=== PATIENT | male | born 1970 | race Caucasian/White ===

== ENCOUNTER 2018-05-02 20:59 | Emergency (ER) | payer BC ==
[~2018-05-02] VITALS: Ht 175.3 cm; Wt 88.0 kg
[2018-05-02] MEDS: HYDROcodone/acetaminophen 10/325mg tab PO ONE (22:03)
[2018-05-02] MEDS ORDERED: HYDR-3965 PO (22:13)
[2018-05-02 22:31] VITALS: BP 133/74
== END 2018-05-02 22:33 | disposition home or self-care (01) ==
LOC: ER 21:00
DX: S52.572A Other intraarticular fracture of lower end of left radius, initial encounter for closed fracture (principal); Z88.6 Allergy status to analgesic agent; W18.39XA Other fall on same level, initial encounter; Y93.89 Activity, other specified; Y92.331 Roller skating rink as the place of occurrence of the external cause; Y99.8 Other external cause status
CPT/HCPCS: 29125; 73110; 99283

== ENCOUNTER 2018-05-07 09:05 | Outpatient (CLI) | payer BC ==
[2018-05-07 09:03] VITALS: BP 134/79
[~2018-05-07 09:05] MED LIST: HYDR-3965 PO
== END 2018-05-07 10:00 | disposition home or self-care (01) ==
LOC: ORTHO 09:05
PROVIDERS: ATTEND Nurse Practitioner Family
DX: S52.612A Displaced fracture of left ulna styloid process, initial encounter for closed fracture (principal); S52.572A Other intraarticular fracture of lower end of left radius, initial encounter for closed fracture; Z88.5 Allergy status to narcotic agent; W18.39XA Other fall on same level, initial encounter; Y93.89 Activity, other specified; Y92.331 Roller skating rink as the place of occurrence of the external cause; Y99.8 Other external cause status
CPT/HCPCS: 73110; 99213

== ENCOUNTER 2018-05-22 09:53 | Outpatient (CLI) | payer BC ==
[2018-05-22 09:52] VITALS: BP 128/78
== END 2018-05-22 10:32 | disposition home or self-care (01) ==
LOC: ORTHO 09:53
PROVIDERS: ATTEND Nurse Practitioner Family
DX: S52.572D Other intraarticular fracture of lower end of left radius, subsequent encounter for closed fracture with routine healing (principal); S52.612A Displaced fracture of left ulna styloid process, initial encounter for closed fracture; Z88.5 Allergy status to narcotic agent; W19.XXXD Unspecified fall, subsequent encounter
CPT/HCPCS: 73110; 99213; A4590

== ENCOUNTER 2018-06-06 09:07 | Outpatient (CLI) | payer BC, OTHER ==
[2018-06-06 09:04] VITALS: BP 124/72
== END 2018-06-06 09:46 | disposition home or self-care (01) ==
LOC: ORTHO 09:07
PROVIDERS: ATTEND Nurse Practitioner Family
DX: S52.572D Other intraarticular fracture of lower end of left radius, subsequent encounter for closed fracture with routine healing (principal); S52.612G Displaced fracture of left ulna styloid process, subsequent encounter for closed fracture with delayed healing; Z88.5 Allergy status to narcotic agent; W19.XXXD Unspecified fall, subsequent encounter
CPT/HCPCS: 73110; 99213

== ENCOUNTER 2018-06-20 09:02 | Outpatient (CLI) | payer BC ==
[2018-06-20 09:00] VITALS: BP 126/79
== END 2018-06-20 09:33 | disposition home or self-care (01) ==
LOC: ORTHO 09:02
PROVIDERS: ATTEND Nurse Practitioner Family
DX: S52.572D Other intraarticular fracture of lower end of left radius, subsequent encounter for closed fracture with routine healing (principal); S52.612D Displaced fracture of left ulna styloid process, subsequent encounter for closed fracture with routine healing; Z88.5 Allergy status to narcotic agent; Y93.51 Activity, roller skating (inline) and skateboarding
CPT/HCPCS: 73110; 99213

== ENCOUNTER 2018-07-04 09:22 | Outpatient (CLI) | payer BC | END 2018-07-04 09:44 | disposition home or self-care (01) | LOC: ORTHO 09:22 | PROVIDERS: ATTEND Nurse Practitioner Family | DX: S52.572D Other intraarticular fracture of lower end of left radius, subsequent encounter for closed fracture with routine healing (principal); S52.612D Displaced fracture of left ulna styloid process, subsequent encounter for closed fracture with routine healing; Z88.5 Allergy status to narcotic agent; W19.XXXD Unspecified fall, subsequent encounter; Y93.51 Activity, roller skating (inline) and skateboarding | CPT/HCPCS: 73110; G0463; 99213 ==

== ENCOUNTER 2018-08-01 11:03 | Outpatient (CLI) | payer OTHER ==
[2018-08-01 11:06] VITALS: BP 123/75
== END 2018-08-01 11:30 | disposition home or self-care (01) ==
LOC: ORTHO 11:03
PROVIDERS: ATTEND Nurse Practitioner Family
DX: S52.572D Other intraarticular fracture of lower end of left radius, subsequent encounter for closed fracture with routine healing (principal); S52.612D Displaced fracture of left ulna styloid process, subsequent encounter for closed fracture with routine healing; X58.XXXD Exposure to other specified factors, subsequent encounter
CPT/HCPCS: 73110; 99213

== ENCOUNTER 2018-08-08 09:25 | Outpatient (CLI) | payer OTHER ==
[2018-08-08 09:24] VITALS: BP 118/83
== END 2018-08-08 09:48 | disposition home or self-care (01) ==
LOC: ORTHO 09:25
PROVIDERS: ATTEND Nurse Practitioner Family
DX: S52.502D Unspecified fracture of the lower end of left radius, subsequent encounter for closed fracture with routine healing (principal); X58.XXXD Exposure to other specified factors, subsequent encounter
CPT/HCPCS: 73110; 99213

== ENCOUNTER 2018-08-29 09:19 | Outpatient (CLI) | payer OTHER ==
[2018-08-29 09:08] VITALS: BP 107/79
== END 2018-08-29 09:29 | disposition home or self-care (01) ==
LOC: ORTHO 09:19
PROVIDERS: ATTEND Nurse Practitioner Family
DX: S52.592D Other fractures of lower end of left radius, subsequent encounter for closed fracture with routine healing (principal); S52.612D Displaced fracture of left ulna styloid process, subsequent encounter for closed fracture with routine healing; X58.XXXD Exposure to other specified factors, subsequent encounter
CPT/HCPCS: 73110; 99213

== ENCOUNTER 2018-10-03 09:24 | Outpatient (CLI) | payer OTHER ==
[2018-10-03 09:56] VITALS: BP 125/84
== END 2018-10-03 09:43 | disposition home or self-care (01) ==
LOC: ORTHO 09:24
PROVIDERS: ATTEND Orthopaedic Surgery
DX: S52.592D Other fractures of lower end of left radius, subsequent encounter for closed fracture with routine healing (principal); X58.XXXD Exposure to other specified factors, subsequent encounter
CPT/HCPCS: 73110; 99213

== ENCOUNTER 2020-07-17 11:45 | Emergency (ER) | payer BC, OTHER ==
[~2020-07-17] VITALS: Ht 175.3 cm; Wt 75.0 kg
[2020-07-17 11:47] VITALS: BP 138/76
[2020-07-17 12:33] LABS: CLARITY,URINE CLEAR (Clear); COLOR,URINE YELLOW (Yellow); GLUCOSE, URINE NEGATIVE (Neg); KETONES,URINE NEGATIVE (Neg); LEUKOCYTE ESTERASE ,URINE NEGATIVE (Neg); NITRITES, URINE NEGATIVE (Neg); OCCULT BLOOD,URINE NEGATIVE (Neg); PROTEIN,URINE NEGATIVE (Neg); UROBILINOGEN,URINE 0.2 E.U/dL (0.2-1.0)
[2020-07-17 12:47] LABS: UA COLLECTION TYPE CLN CATCH MIDSTREAM
[2020-07-17] MEDS ORDERED: FLO0.4C PO (13:09)
== END 2020-07-17 13:14 | disposition home or self-care (01) ==
LOC: ER 11:46
DX: R35.0 Frequency of micturition (principal); Z72.89 Other problems related to lifestyle; Z88.5 Allergy status to narcotic agent; Z79.899 Other long term (current) drug therapy
CPT/HCPCS: 81003; 82948; 99283

== ENCOUNTER 2020-08-12 14:09 | Outpatient (CLI) | payer BC ==
[~2020-08-12 14:09] MED LIST changes: +FLO0.4C PO; -HYDR-3965 PO
[2020-08-12 14:45] LABS: BASOPHILS % (AUTO) 1.1 % (0-1); EOSINOPHILS % (AUTO) 0.7 % (0-6); HEMATOCRIT 42.6 % (42.0-52.0); HEMOGLOBIN 14.3 g/dl (14.0-17.9); LYMPHOCYTES # (AUTO) 1.4 X10'3 (1.1-4.8); MEAN CORPUSCULAR HEMOGLOBIN 31.7 PG (27.0-31.0); MEAN CORPUSCULAR HGB CONC 33.4 g/dL (33.0-36.5); MEAN CORPUSCULAR VOLUME 94.7 FL (78-98); MEAN PLATELET VOLUME 7.8 FL (7.4-10.4); MONOCYTES # (AUTO) 0.5 X10'3 (0-0.9); MONOCYTES % (AUTO) 10.9 % (2-12); NEUTROPHILS # (AUTO) 2.3 X10'3 (1.8-7.7); NEUTROPHILS % (AUTO) 54.3 % (42-75); PLATELET COUNT 213 X10'3 (140-440); RED CELL DISTRIBUTION WIDTH 13.8 % (11.5-14.5); WHITE BLOOD COUNT 4.2 X10'3 (4.5-11.0)
[2020-08-12 15:02] LABS: ALANINE AMINOTRANSFERASE 25 U/L (12-78); ALBUMIN/GLOBULIN RATIO 1.3 (1.1-1.5); ALKALINE PHOSPHATASE 85 IU/L (46-116); ANION GAP 5 (8-16); ASPARTATE AMINO TRANSFERASE 17 U/L (10-37); BILIRUBIN,TOTAL 0.6 MG/DL (0.1-1.0); BLOOD UREA NITROGEN 15 MG/DL (7-18); BUN/CREATININE RATIO 12.3 (5.4-32.0); CALCIUM 8.9 MG/DL (8.5-10.1); CHLORIDE 105 MMOL/L (99-107); CHOL/HDL RATIO 2.9 (0.00-4.99); CHOLESTEROL 137 MG/DL (0-200); CREATININE 1.22 MG/DL (0.60-1.10); GLUCOSE 84 MG/DL (70-104); HDL CHOLESTEROL 48 MG/DL (35-60); LDL CHOLESTEROL 82 MG/DL (50-100); POTASSIUM 4.5 MMOL/L (3.5-5.1); SODIUM 141 MMOL/L (135-145); TOTAL CARBON DIOXIDE 31.1 MMOL/L (24-32); TOTAL PROTEIN 7.1 G/DL (6.4-8.2); TRIGLYCERIDES 54 MG/DL (20-135); eGFR 63 ML/MIN
[2020-08-12 15:05] LABS: HEMOGLOBIN A1C 6.2 % (4.5-6.2)
[2020-08-12 15:21] LABS: CLARITY,URINE CLEAR (Clear); COLOR,URINE YELLOW (Yellow); GLUCOSE, URINE NEGATIVE (Neg); KETONES,URINE NEGATIVE (Neg); LEUKOCYTE ESTERASE ,URINE NEGATIVE (Neg); NITRITES, URINE NEGATIVE (Neg); OCCULT BLOOD,URINE NEGATIVE (Neg); PROTEIN,URINE NEGATIVE (Neg)
[2020-08-12 15:26] LABS: UA COLLECTION TYPE CLN CATCH MIDSTREAM
[2020-08-14 12:34] LABS: % FREE PSA 33.8 % (.); PSA, FREE 0.27 ng/mL
== END 2020-08-12 23:59 | disposition home or self-care (01) ==
LOC: LAB 14:09
PROVIDERS: ATTEND Nurse Practitioner Family
DX: Z00.01 Encounter for general adult medical examination with abnormal findings (principal); Z13.220 Encounter for screening for lipoid disorders; Z13.0 Encounter for screening for diseases of the blood and blood-forming organs and certain disorders involving the immune mechanism; N40.0 Benign prostatic hyperplasia without lower urinary tract symptoms; R73.09 Other abnormal glucose
CPT/HCPCS: 36415; 80053; 80061; 81003; 83036; 84153; 84154; 85025

== ENCOUNTER 2020-08-21 19:31 | Emergency (ER) | payer BC ==
[~2020-08-21] VITALS: Ht 175.3 cm; Wt 72.7 kg
[2020-08-21] MEDS ORDERED: TETanus/Pertussis (Acell)/Diphther VAC/PF (Tdap-Adult) 0.5ml syringe IMVAC ONE (21:25)
[2020-08-21] MEDS ORDERED: LIDOcaine 1% W/epiNEPHrine 1:200,000 10ml vial IJ ONE (21:40)
[2020-08-21 23:23] VITALS: BP 124/87
== END 2020-08-21 23:17 | disposition home or self-care (01) ==
LOC: ER 19:31
DX: S01.21XA Laceration without foreign body of nose, initial encounter (principal); J34.89 Other specified disorders of nose and nasal sinuses; Z20.3 Contact with and (suspected) exposure to rabies; Z72.89 Other problems related to lifestyle; Z88.5 Allergy status to narcotic agent; X58.XXXA Exposure to other specified factors, initial encounter; Y93.89 Activity, other specified; Y92.89 Other specified places as the place of occurrence of the external cause; Y99.8 Other external cause status
CPT/HCPCS: 12013; 90471; 90715; 99283

== ENCOUNTER 2022-03-25 12:05 | Emergency (ER) | payer BC ==
[~2022-03-25] VITALS: Ht 175.3 cm; Wt 79.5 kg
[2022-03-25 12:19] VITALS: BP 114/82
== END 2022-03-25 15:26 | disposition home or self-care (01) ==
LOC: ER 12:06
DX: S62.625A Displaced fracture of middle phalanx of left ring finger, initial encounter for closed fracture (principal); Z87.81 Personal history of (healed) traumatic fracture; Z88.5 Allergy status to narcotic agent; W21.05XA Struck by basketball, initial encounter; Y93.89 Activity, other specified; Y92.89 Other specified places as the place of occurrence of the external cause; Y99.8 Other external cause status
CPT/HCPCS: 29130; 73130; 99283

== ENCOUNTER 2022-05-12 09:01 | Outpatient (CLI) | payer BC | END 2022-05-12 23:59 | disposition home or self-care (01) | LOC: RAD 09:01 | PROVIDERS: ATTEND Physician Assistant | DX: S46.811A Strain of other muscles, fascia and tendons at shoulder and upper arm level, right arm, initial encounter (principal); M19.011 Primary osteoarthritis, right shoulder; M25.711 Osteophyte, right shoulder; M77.8 Other enthesopathies, not elsewhere classified; M75.21 Bicipital tendinitis, right shoulder; X58.XXXA Exposure to other specified factors, initial encounter; Y93.89 Activity, other specified; Y92.89 Other specified places as the place of occurrence of the external cause; Y99.8 Other external cause status | CPT/HCPCS: 73221 ==

== ENCOUNTER 2022-09-02 12:41 | Outpatient (CLI) | payer BC | END 2022-09-02 23:59 | disposition home or self-care (01) | LOC: RAD 12:41 | PROVIDERS: ATTEND Nurse Practitioner | DX: M54.50 Low back pain, unspecified (principal); M48.061 Spinal stenosis, lumbar region without neurogenic claudication; M48.02 Spinal stenosis, cervical region; Z91.81 History of falling | CPT/HCPCS: 72141; 72146; 72148 ==

== ENCOUNTER 2022-09-06 07:51 | Emergency (ER) | payer BC ==
[~2022-09-06] VITALS: Ht 175.3 cm; Wt 79.5 kg
[2022-09-06 08:01] VITALS: BP 130/95
== END 2022-09-06 08:57 | disposition home or self-care (01) ==
LOC: ER 07:51
DX: M25.512 Pain in left shoulder (principal); Z72.89 Other problems related to lifestyle; Z88.5 Allergy status to narcotic agent
CPT/HCPCS: 73000; 73030; 73221; 99284

== ENCOUNTER 2022-11-07 11:12 | Outpatient (CLI) | payer BC ==
[2022-11-08 13:36] LABS: % FREE PSA 22.1 % (.); PSA, FREE 0.42 ng/mL
== END 2022-11-07 23:59 | disposition home or self-care (01) ==
LOC: LAB 11:12
PROVIDERS: ATTEND Urology
DX: N40.1 Benign prostatic hyperplasia with lower urinary tract symptoms (principal)
CPT/HCPCS: 36415; 84153; 84154

== ENCOUNTER → 2023-02-24 | Outpatient (CLI) | payer BC, OTHER | END | disposition home or self-care (01) | LOC: RAD 14:54 | PROVIDERS: ATTEND Internal Medicine Infectious Disease | DX: Z11.1 Encounter for screening for respiratory tuberculosis (principal) | CPT/HCPCS: 71046 ==

== ENCOUNTER 2023-03-10 14:52 | Outpatient (CLI) | payer BC ==
[2023-03-10] MEDS ORDERED: SAW450CA7 PO (15:35)
[2023-03-10 16:38] LABS: BASOPHILS % (AUTO) 0.6 % (0-1); EOSINOPHILS % (AUTO) 0.4 % (0-6); LYMPHOCYTES # (AUTO) 1.4 X10'3 (1.1-4.8); LYMPHOCYTES % (AUTO) 31.2 % (21-51); MEAN CORPUSCULAR HEMOGLOBIN 31.6 PG (27.0-31.0); MEAN CORPUSCULAR HGB CONC 33.3 g/dL (33.0-36.5); MEAN CORPUSCULAR VOLUME 94.9 FL (78-98); MEAN PLATELET VOLUME 7.6 FL (7.4-10.4); MONOCYTES # (AUTO) 0.5 X10'3 (0-0.9); MONOCYTES % (AUTO) 9.9 % (2-12); NEUTROPHILS # (AUTO) 2.7 X10'3 (1.8-7.7); NEUTROPHILS % (AUTO) 57.9 % (42-75); PRE OP HEMATOCRIT 45.9 % (42.0-52.0); PRE OP HEMOGLOBIN 15.3 g/dL (14.0-17.9); PRE OP PLATELET COUNT 237 X10'3 (140-440); PRE OP WHITE BLOOD COUNT 4.6 10'3 (4.8-10.8); RED BLOOD COUNT 4.83 X10'6 (4.70-6.10); RED CELL DISTRIBUTION WIDTH 14.3 % (11.5-14.5)
[2023-03-10 16:59] LABS: ALBUMIN 4.2 G/DL (3.4-5.0); ALBUMIN/GLOBULIN RATIO 1.2 (1.1-1.5); ALKALINE PHOSPHATASE 85 IU/L (46-116); BLOOD UREA NITROGEN 14 MG/DL (7-18); BUN/CREATININE RATIO 12.8 (10.0-20.0); CALCIUM 9.3 MG/DL (8.5-10.1); CHLORIDE 104 MMOL/L (99-107); CREATININE 1.09 MG/DL (0.60-1.10); PRE OP ALT 40 U/L (30-65); PRE OP ANION GAP 3 (8-16); PRE OP AST 23 U/L (10-37); PRE OP BILIRUB, TOTAL 0.6 MG/DL (0.0-1.0); PRE OP GLUCOSE 81 MG/DL (70-104); PRE OP POTASSIUM 4.3 MMOL/L (3.4-5.1); PRE OP SODIUM 139 MMOL/L (135-145); TOTAL CARBON DIOXIDE 31.7 MMOL/L (24-32); TOTAL PROTEIN 7.6 G/DL (6.4-8.2); eGFR 71 ML/MIN
== END 2023-03-10 23:59 | disposition home or self-care (01) ==
LOC: LAB 14:52 → EDSTATUS 03-17 11:45
PROVIDERS: ATTEND Orthopaedic Surgery
DX: Z01.818 Encounter for other preprocedural examination (principal); M75.51 Bursitis of right shoulder; M75.41 Impingement syndrome of right shoulder; M75.111 Incomplete rotator cuff tear or rupture of right shoulder, not specified as traumatic; M25.511 Pain in right shoulder; M19.011 Primary osteoarthritis, right shoulder; Z88.6 Allergy status to analgesic agent
CPT/HCPCS: 36415; 80053; 85025; 93005

== ENCOUNTER 2023-03-10 15:02 | Outpatient (CLI) | payer BC ==
[2023-03-10] MEDS ORDERED: SAW450CA7 PO (15:35)
[2023-03-13 12:15] LABS: % FREE PSA 15.7 % (.); PROSTATE SPECIFIC AG, SERUM 2.3 ng/mL (0.0-4.0); PSA, FREE 0.36 ng/mL
== END 2023-03-10 23:59 | disposition home or self-care (01) ==
LOC: LAB 15:02
PROVIDERS: ATTEND Urology
DX: N42.9 Disorder of prostate, unspecified (principal)
CPT/HCPCS: 36415; 84153; 84154

== ENCOUNTER 2023-04-03 06:41 | Day surgery (SDC) | payer BC ==
[2023-04-03] VITALS (9 sets, daily range): BP systolic 113–129; BP diastolic 77–88; PULSE 55–64; RESP 10–16; TEMP 98.4; O2SAT 94–98
[~2023-04-03] VITALS: Ht 175.3 cm; Wt 82.6 kg
[~2023-04-03 06:41] MED LIST changes: -FLO0.4C PO; +SAW450CA7 PO
[2023-04-03] MEDS ORDERED: epiNEPHrine 1 mg/ml 30ml MDV ONE (08:43)
[2023-04-03] MEDS ORDERED: LIDOcaine 1% w/EPI 1:100,000 inj. MDV 50 ML VIAL ONE (08:43)
[2023-04-03] MEDS ORDERED: ROPIVAcaine 0.5% (5mg/ml) 30ml vial ONE ×2 (08:43→08:50)
[2023-04-03] MEDS ORDERED: triamcinolone acetonide 40mg/ml inj ONE (08:43)
[2023-04-03] MEDS ORDERED: cloNIDine hcl/PF 100mcg/ml inj ONE (08:45)
[2023-04-03] MEDS ORDERED: midazolam 1 mg/ML 2ml injection ONE (08:48)
[2023-04-03] MEDS ORDERED: fentaNYL/PF 50MCG/1 ML 2ML syringe ONE (08:48)
[2023-04-03] MEDS ORDERED: propofol inj 20 ML IV ONE (08:48)
[2023-04-03] MEDS ORDERED: dexamethasone sod phosphate 4mg/ml inj. ONE (08:54)
[2023-04-03] MEDS ORDERED: sevoflurane 250ml liquid IH ONE (08:56)
[2023-04-03] MEDS ORDERED: morphine 2 MG/ML inj. syringe IV PRN (10:20)
[2023-04-03] MEDS ORDERED: proCHLORperazine 10 MG/2 ml inj IV PRN (10:20)
[2023-04-03] MEDS ORDERED: meperidine/PF 25mg/ml syringe IV PRN ×3 (10:20)
[2023-04-03] MEDS ORDERED: ringers solution, lacted 1,000 ML IV SCH (10:20)
[2023-04-03] MEDS ORDERED: ondansetron/PF 4mg/2ml inj IV PRN (10:20)
[2023-04-03] MEDS ORDERED: morphine 4 MG/ML inj SYRINge IV PRN (10:20)
--- NOTE | 2023-04-03 11:19 | NUR ---
Received from OR via [facility], accompanied by Anesthesiologist DR. SCHMIDT and report given by Anesthesiolgist. PATIENT RESPONDS TO VERBAL STIMULI, DENIES PAIN, V/S WNL, SCD ON , PIV 20G L.HAND, DRESSING TO RIGHT SIDE CDI, ABDUCTOR SLING IN PLACE. 10L MASK 98%. LR INFUSING PER ORDER.
--- NOTE | 2023-04-03 12:49 | NUR ---
ALL DISCHARGE CRITERIA HAS BEEN MET. VSS, PAIN AT TOLERABLE LEVEL. ABLE TO SAFELY AMBULATE AND TRANSFER SELF. IV TAKEN OUT WITHOUT ANY COMPLICATIONS. ALL DISCHARGE INSTRUCTIONS COVERED WITH PATIENT AND , KANAYCE, AND ALL QUESTIONS ANSWERED. PATIENT TAKEN OUT VIA WHEELCHAIR TO PERSONAL VEHICLE WHERE FAMILY/FRIEND DROVE PATIENT HOME.
[2023-04-04] MEDS ORDERED: ringers solution, lacted 1,000 ML IV SCH (05:00)
[2023-04-04] MEDS ORDERED: famotidine 20mg tablet PO ONE (05:30)
== END 2023-04-03 12:49 | disposition home or self-care (01) ==
LOC: PAS 06:41
PROVIDERS: ATTEND Orthopaedic Surgery
DX: S46.011A Strain of muscle(s) and tendon(s) of the rotator cuff of right shoulder, initial encounter (principal); S43.491A Other sprain of right shoulder joint, initial encounter; M75.51 Bursitis of right shoulder; M75.41 Impingement syndrome of right shoulder; M19.011 Primary osteoarthritis, right shoulder; M94.211 Chondromalacia, right shoulder; G89.18 Other acute postprocedural pain; Z88.5 Allergy status to narcotic agent; Z79.899 Other long term (current) drug therapy; X58.XXXA Exposure to other specified factors, initial encounter; Y93.89 Activity, other specified; Y92.89 Other specified places as the place of occurrence of the external cause; Y99.8 Other external cause status
CPT/HCPCS: 29823; 29824; 29826; 29827; 64415; C1713; J0171; J0690; J0735; J1100; J2250; J2704; J2795; J3010; J3301; J3490; J7030; J7060; J7120; Z7506; Z7508; Z7512; A4215; A4618; A6253; A6449